=== PATIENT | female | born 1925 | race Caucasian/White ===

== ENCOUNTER 2016-08-10 13:43 | Emergency (ER) | payer MEDICARE, OTHER ==
[2016-08-10] MEDS ORDERED: Ondansetron INJ* 2 MG/ML VIAL ONE (14:40)
--- NOTE | 2016-08-10 15:11 | RAD ---
HISTORY: Confusion, falls, dragging left foot, history of stroke COMPARISONS: None TECHNIQUE: Multiple contiguous axial CT scans were obtained of the head without intravenous contrast. FINDINGS: HEMORRHAGE/INFARCT: There is no hemorrhage or acute infarct. MASSES/SHIFT: There is no mass or shift. EXTRA-AXIAL SPACES: There are no extra-axial fluid collections. SULCI AND VENTRICLES: The sulci and ventricles are normal in size and position for the patient's stated age. CEREBRUM: There is inseparable malacia consistent with a chronic infarct of the right MCA territory. BRAINSTEM: There are no focal parenchymal abnormalities. CEREBELLUM: There are no focal parenchymal abnormalities. VESSELS: The vessels are grossly normal. PARANASAL SINUSES: The paranasal sinuses are clear. ORBITS: The orbits are unremarkable. BONES AND SOFT TISSUE: No bone or soft tissue abnormalities are noted. OTHER: None IMPRESSION: REMOTE RIGHT MCA INFARCT. NO ACUTE INTRACRANIAL PATHOLOGY.
--- NOTE | 2016-08-10 15:25 | RAD ---
HISTORY: Confusion, falls COMPARISONS: October 08, 2015 VIEWS: 2: Frontal and lateral views of the chest. FINDINGS: CARDIOMEDIASTINAL SILHOUETTE: The cardiac silhouette is enlarged. The cardiomediastinal silhouette is otherwise normal. RONEN: The ronen are normal. PLEURA: The costophrenic angles are sharp. No pleural abnormalities are noted. LUNG PARENCHYMA: The lungs are clear. ABDOMEN: The upper abdomen is clear. There is no subphrenic gas. BONES AND SOFT TISSUES: No bone or soft tissue abnormalities are noted. OTHER: None. IMPRESSION: CARDIOMEGALY
--- NOTE | 2016-08-10 15:28 | RAD ---
INDICATION: Constipation COMPARISON: January 27, 2011 TECHNIQUE: A single view of the abdomen is submitted. FINDINGS: Bones: There are no acute bony findings. Soft tissues: The soft tissues appear normal. The psoas margins are sharp. Bowel gas pattern: There is significant retained stool. There is no obstruction Calcifications: There are no abnormal calcifications. Other: None IMPRESSION: RETAINED STOOL.
[2016-08-10 15:36] LABS: Hematocrit 44 % (35-47); Hemoglobin 14.4 g/dl (12.0-16.0); Mean Corpuscular HGB Conc 32 g/dl (31-36); Mean Corpuscular Hemoglobin 31 pg (27-31); Mean Corpuscular Volume 96 fL (80-97); Mean Platelet Volume 9 um3 (7.4-10.4); Red Blood Count 4.63 10^6/ul (4.0-5.4); Red Cell Distribution Width 16 % (10.5-15); White Blood Count 4.3 10^3/ul (3.5-10.8)
--- NOTE | 2016-08-10 15:48 | ED ---
Joe Dias Billy, scribed for Keisha Kaiser MD on 08/10/16 at 1438 . Complex/Multi-Sys Presentation - HPI Summary HPI Summary: Patient is an 89 year-old female coming to [facility] by EMS with her daughter for evaluation of pain in the bunion of her left foot for the last 2-3 weeks. She lives in an apartment at [facility]. Pt here with multiple complaints. Pt has has progressive discomfort in left foot x 2-3 weeks. Pt states hasn't been able to walk second to foot. Pt states is also "dragging" her foot a little now x 1 month. Pt states when ambulates has pain in foot. She denies any previous diagnosis of gout. Patient has a history of CHF and noticed that her legs have been swelling much more than usual in the last few weeks. She is dragging her left foot while walking, which her daughter noticed today. Pt is on codeine for chronic back pain. She has constipation which has not improved with stool softeners. Pt also reports feeling unsteady. Pt with a fall on Tuesday - no injuries. She also states that she has been unable to urinate sitting down and can only urinate while standing x 3 weeks - but denies any pain with urination. Patient reports a simple mechanical fall 2 days ago. she had several headaches on 08/01/16, which resolved spontaneously. Patient denies any fevers or chills. No cp, sob, abd pain. The patients daughter states that the patient is sleeping more than usual. Daughter states she spoke with ASS[facility]ANT SCIENTIST 1 week ago - plan was to adjust narcotic medication and check labwork. The labs were not drawn, so PCP transferred pt to ED today for further eval. All medications were reviewed this visit. 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 Negative: Chest Pain, Nausea, Vomiting, Diarrhea, Abdominal Pain, Fever - Allergies/Home Medications Allergies/Adverse Reactions: Allergies Allergy/AdvReac Type Severity Reaction Status Date / Time No Known Allergies Allergy Verified 08/10/16 13:53 Home Medications: Home Medications Bisacodyl EC TAB* [Dulcolax EC TAB*] 10 mg PO DAILY PRN 08/10/16 [History Confirmed 08/10/16] Calcium Carbonate CHEW TAB* [Tums*] 500 mg PO Q2HR PRN 08/10/16 [History Confirmed 08/10/16] Gabapentin CAP(*) [Neurontin 100 mg CAP(*)] 300 mg PO QPM PRN 08/10/16 [History Confirmed 08/10/16] Nystatin CREAM* [Nystatin Cream*] 1 applic TOPICAL DAILY PRN 08/10/16 [History Confirmed 08/10/16] RX: Furosemide TAB* [Lasix TAB*] 40 mg PO QAM 08/10/16 [History Confirmed ] RX: Nitroglycerin TAB 0.4 MG* 0.4 mg SL Q5M PRN 08/10/16 [History Confirmed 05/28] Ranitidine TAB (NF) [Zantac TAB (NF)] 150 mg PO BID PRN 08/10/16 [History Confirmed 08/10/16] Saliva Substitute (NF) [Biotene Moisturizing Mouth (NF)] 1 spray PO Q8HR [History Confirmed 08/10/16] Sennosides-Docusate Sodium [Senna-S 8.6-50 mg] 2 tab PO QAM PRN 08/10/16 [ History Confirmed 08/10/16] Sennosides-Docusate Sodium [Senokot S] 1 tab PO QPM 08/10/16 [History Confirmed 08/10/16] PMH/Surg Hx/FS Hx/Imm Hx Endocrine/Hematology History: Denies: Hx Diabetes Cardiovascular History: Reports: Hx Atrial Fibrillation, Hx Congestive Heart Failure, Hx Hypercholesterolemia, Hx Hypertension, Other Cardiovascular Problems /Disorders - Pt reports Mitral Valve Prolapse Denies: Hx Pacemaker/ICD GI History: Reports: Hx Gastroesophageal Reflux Disease, Hx Hiatal Hernia Musculoskeletal History: Reports: Hx Back Problems - cervical spine, Other Musculoskeletal History - bilat total knee replacement Sensory History: Reports: Hx Cataracts - removed, Hx Macular Degeneration Opthamlomology History: Reports: Hx Cataracts - removed, Hx Macular Degeneration Neurological History: Reports: Hx CVA, Hx Migraine, Other Neuro Impairments/ Disorders - spinal stenosis Psychiatric History: Reports: Hx Depression - on Lexapro Denies: Hx Panic Disorder - Surgical History Surgery Procedure, Year, and Place: cervical spinal surgery x2, bilateral knee replacements , hysterectomy, bilat cataract removal Hx Anesthesia Reactions: No - Immunization History Date of Tetanus Vaccine: Up to date Date of Influenza Vaccine: 2005 Infectious Disease History: No Infectious Disease History: Denies: Traveled Outside the [place] in Last 30 Days - Family History Family History: The patient reports a father with colon cancer and mother with cardiac disease and CHF, and multiple brothers with cardiac disease. - Social History [facility]: [facility] Alcohol Use: None Hx Substance Use: No Substance Use Type: Reports: None, Other Substance Use Comment - Amount & Last Used: unknown Hx Tobacco Use: No Smoking Status (MU): Never Smoked Tobacco Review of Systems Constitutional: Other - Increased sleep Positive: Fatigue. Negative: Fever, Chills Eyes: Other - Macular degeneration ENT: Negative Cardiovascular: Negative Negative: Chest Pain Respiratory: Negative Negative: Shortness Of Breath Gastrointestinal: Other - Constipation Negative: Abdominal Pain, Vomiting, Diarrhea, Nausea Genitourinary: Other - Unable to urinate while seated Negative: dysuria Musculoskeletal: Other - Chronic lower back pain. Pain in the left bunion. Dragging left foot while walking. Positive: Edema Skin: Negative Positive: Headache - Patient had a series of headaches last Tuesday08/01/16 Psychological: Normal All Other Systems Reviewed And Are Negative: Yes Physical Exam Triage Information Reviewed: Yes Vital Signs On Initial Exam: Initial Vitals Temp Pulse Resp BP Pulse Ox 97.5 F 87 18 137/89 94 08/10/16 13:52 08/10/16 13:52 08/10/16 13:52 08/10/16 13:52 08/10/16 13:52 Vital Signs Reviewed: Yes Appearance: Positive: Well-Appearing, No Pain Distress, Well-Nourished Skin: Positive: Warm, Skin Color Reflects Adequate Perfusion, Dry Head/Face: Positive: Normal Head/Face Inspection Eyes: Positive: Normal, EOMI, ANDRA ENT: Positive: TMs normal Neck: Positive: Supple, Nontender Respiratory/Lung Sounds: Positive: Clear to Auscultation, Breath Sounds Present , Decreased Breath Sounds Cardiovascular: Positive: Normal, Murmur, Leg Edema Left, Leg Edema Right - + b/ l LE feel to knee Abdomen Description: Positive: Nontender, No Organomegaly, Soft. Negative: Distended, Guarding Bowel Sounds: Positive: Present Musculoskeletal: Positive: Normal, Strength/ROM Intact, Other - left foot - pt with bunion 1st MT no tenderness to palpaiton or movement Neurological: Positive: Normal, Sensory/Motor Intact, Alert, Oriented to Person Place, Time. Negative: Slurred Speech Psychiatric: Positive: Normal AVPU Assessment: Alert - Bam Coma Scale Best Eye Response: 4 - Spontaneous Best Motor Response: 6 - Obeys Commands Best Verbal Response: 5 - Oriented Diagnostics - Vital Signs Vital Signs Temp Pulse Resp BP Pulse Ox 08/10/16 13:52 97.5 F 87 18 137/89 94 - Laboratory Result Diagrams: 08/10/16 15:20 08/10/16 15:20 Lab Statement: Any lab studies that have been ordered have been reviewed, and results considered in the medical decision making process. - Radiology CXR Radiology Interpretation Completed By: Radiologist - Cardiomegaly. Abdomen XRay Radiology Interpretation Completed By: Radiologist - Retained stool. - CT Brain CT Interpretation Completed By: Radiologist - Remote right MCA infarct. No acute intracranial pathology. - Ultrasound No standard instances Ultrasound Interpretation Completed By: Radiologist - Lower extremity ultrasound : No DVT. - EKG 1509 EKG Interpretation: afib 84 bpm, diffusely flat T-waves Re-Evaluation - Re-Evaluation First Eval Re-Evaluation Time: 16:10 Comment: REviewed labs and imaging with pt and daughter. Will give fleets enema for stool. Will likely start colchicine for gout. awaiting ultrasound for DVT. Pt and daughter in agreement with plan. RN calling [facility] for ?pt able to return with currently difficulty with ambulation status Second Eval Re-Evaluation Time: 18:05 Change: Improved - P ramirez very large BM following enema - states feeling improved Pt was able to stand and transfer at bedside Spoke with Dr. sahu - covering Dr. Rothman - will update her regarding ?laxative, elevated uric acid - ? gout Pt requesting to return to [facility] RN confirmed ok for pt to return discharge written Complex Multi-Symp Course/Dx Course Of Treatment: PT presnts with daughter with multiple complaints including pain in left food, LE edema, difficulty walking, increased sleep, difficulty with urination and decreased energy - all progressive over [address] head, cxr, abd xray, lle for dvt. labs. ekg. urine. reassess - Diagnoses Provider Diagnoses: Constipation, Foot pain, Elevated blood uric acid level - Physician Notifications Discussed Care Of Patient With: Dr. Sahu (PCP) at 1800 Discharge - Discharge Plan Condition: Stable Disposition: HOME Patient Education Materials: Constipation (ED), Gout (ED) Referrals: Mercy Rothman MD [Primary Care Provider] - Additional Instructions: your tests today did not reveal a blood clot in your leg or a new stroke your labs showed an elevated uric acid level which may be causing gout It is recommend you take laxatives while taking narcotic pain medication Discuss with your doctor your elevated uric acid level - she may want to start you on medication for gout Contact your doctor or return with questions or concerns The documentation as recorded by the Joe stearns Billy accurately reflects the service I personally performed and the decisions made by me, Keisha Kaiser MD.
[2016-08-10 15:52] LABS: Urine Bilirubin Negative (Negative); Urine Glucose Negative (Negative); Urine Nitrite Negative (Negative)
[2016-08-10 15:56] LABS: BUN/Creatinine Ratio 16.9 (8-20); Calcium 9.6 mg/dL (8.6-10.3); EGFR African American 52.4 (>60); EGFR Non-African American 40.7 (>60); Globulin 3.1 g/dL (2-4); Magnesium 2.4 mg/dL (1.9-2.7); Potassium 3.6 mmol/L (3.5-5.0); Total Bilirubin 1.5 mg/dL (0.2-1.0); Total Protein 7.1 g/dL (6.4-8.9); Troponin I 0.02 ng/mL (<0.04); Uric Acid 8.9 mg/dL (2.3-6.6)
[2016-08-10] MEDS ORDERED: Sodium Phosphate ADULT ENEMA* 118 ml bottle PR ONE (16:16)
--- NOTE | 2016-08-10 17:23 | RAD ---
HISTORY: Leg edema and pain COMPARISONS: October 08, 2015 TECHNIQUE: Multiple transverse and longitudinal ultrasound images were obtained of the left lower extremity from the level of the common femoral vein inferiorly through to the infrapopliteal veins using grayscale, color Doppler, and spectral Doppler imaging with and without compression and with augmentation. Comparison images were obtained of the contralateral common femoral vein. FINDINGS: VEINS: The venous system of the left lower extremity is compressible throughout its course, with normal flow on color Doppler imaging and normal response to augmentation on spectral Doppler imaging. SOFT TISSUES: Unremarkable. OTHER FINDINGS: None. IMPRESSION: NO LEFT LOWER EXTREMITY DEEP VEIN THROMBOSIS
[2016-08-10 18:52] VITALS: BP 135/101
== END 2016-08-10 19:42 | disposition home or self-care (01) ==
LOC: ED 13:43
DX: R51 Headache (principal); R60.9 Edema, unspecified
CPT/HCPCS: 36415; 70450; 71020; 74000; 80053; 81003; 82550; 83735; 83880; 84484; 84550; 85025; 93005; 99284; A9270-GY; J2405